=== PATIENT | female | born 1955 | race African-American/Black ===

== ENCOUNTER 2017-11-03 10:12 | Emergency (ER) | payer BC, MEDICAID ==
[~2017-11-03] VITALS: Ht 165.1 cm; Wt 85.0 kg
[~2017-11-03 10:12] MED LIST: ACETAMINOPHEN; CHOL50006
[2017-11-03 12:29] LABS: HEMATOCRIT. 40.1 % (36.0-48.0); MEAN CORPUSCULAR HEMOGLOBIN 25.1 pg (28.0-32.0); MEAN CORPUSCULAR VOLUME 77.3 fL (81.0-99.0); MEAN PLATELET VOLUME 7.7 fl (7.4-10.4); PLATELET 291 x1000/uL (130-400); RED BLOOD CELL COUNT 5.19 mill/uL (4.2-5.4); RED CELL DISTRIBUTION WIDTH 15.3 % (11.6-14.6)
[2017-11-03 12:45] LABS: CARBON DIOXIDE 28 mEq/L (21-32); CHLORIDE 109 mEq/L (98-107); TROPONIN I < 0.02 ng/mL (0.00-0.04)
[2017-11-03 12:54] LABS: PLATELET ESTIMATE NORMAL
[2017-11-03 13:22] LABS: CLARITY URINE CLEAR (CLEAR); COLOR URINE YELLOW (YELLOW); KETONES URINE NEGATIVE (NEGATIVE); LEUKOCYTE ESTERASE URINE NEGATIVE (NEGATIVE); NITRITE URINE NEGATIVE (NEGATIVE); OCCULT BLOOD URINE NEGATIVE (NEGATIVE); PH URINE 6.5 (4.5-8.0); PROTEIN URINE NEGATIVE (NEGATIVE); SPECIFIC GRAVITY URINE 1.009 (1.005-1.030); UROBILINOGEN URINE 0.2 E.U./dL (0.2-1.0)
[2017-11-03 14:20] VITALS: BP 130/84
== END 2017-11-03 15:00 | disposition home or self-care (01) ==
LOC: ER 10:22
DX: J20.9 Acute bronchitis, unspecified (principal); R11.0 Nausea; K21.9 Gastro-esophageal reflux disease without esophagitis; Z88.1 Allergy status to other antibiotic agents; Z88.5 Allergy status to narcotic agent; Z86.73 Personal history of transient ischemic attack (TIA), and cerebral infarction without residual deficits; Z85.3 Personal history of malignant neoplasm of breast
CPT/HCPCS: 36415; 71045; 80053; 81003; 83690; 84484; 85025; 87070; 87430; 87804; 93005; 99285; Z7610

== ENCOUNTER 2018-01-04 04:31 | Emergency (ER) | payer BC, MEDICAID ==
[~2018-01-04] VITALS: Ht 170.2 cm; Wt 71.0 kg
[~2018-01-04 04:31] MED LIST changes: +METH4TAB17 PO
[2018-01-04] MEDS ORDERED: SODIUM CHLORIDE 0.9% 1,000 ML IV ONE (06:21)
[2018-01-04 07:07] LABS: BASOPHILS % 0.3 % (0.0-2.0); EOSINOPHILS % 0.1 % (0.0-5.0); HEMATOCRIT. 39.9 % (36.0-48.0); HEMOGLOBIN. 13.2 g/dL (12.0-16.0); MEAN CORPUSCULAR VOLUME 78.3 fL (81.0-99.0); MEAN PLATELET VOLUME 7.7 fl (7.4-10.4); MONOCYTES % 6.3 % (2.0-8.0); NEUTROPHILS % 67.3 % (40.0-76.0); PLATELET 302 x1000/uL (130-400); RED CELL DISTRIBUTION WIDTH 15.7 % (11.6-14.6)
[2018-01-04 07:13] LABS: PROTHROMBIN TIME 10.4 sec (9.4-11.6)
[2018-01-04 07:16] LABS: CHLORIDE 106 mEq/L (98-107)
[2018-01-04 12:00] VITALS: BP 144/72
== END 2018-01-04 12:01 | disposition home or self-care (01) ==
LOC: ER 04:31
DX: J20.9 Acute bronchitis, unspecified (principal); M32.9 Systemic lupus erythematosus, unspecified; Z85.3 Personal history of malignant neoplasm of breast; D72.828 Other elevated white blood cell count; Z88.2 Allergy status to sulfonamides; Z88.5 Allergy status to narcotic agent; Z90.10 Acquired absence of unspecified breast and nipple; Z88.1 Allergy status to other antibiotic agents
CPT/HCPCS: 36415; 71045; 80053; 83880; 84484; 85025; 85610; 93005; 96360; 99285; J7030; Z7610

== ENCOUNTER 2018-02-14 03:03 | Emergency (ER) | payer BC, MEDICAID ==
[~2018-02-14] VITALS: Ht 170.2 cm; Wt 70.0 kg
[2018-02-14] MEDS ORDERED: SODIUM CHLORIDE 0.9% 1000ML BAG (SEPSIS BOLUS) IV ONE ×2 (04:45→08:00)
[2018-02-14] MEDS ORDERED: KETOROLAC 30MG/ML VIAL IV ONE (05:15)
[2018-02-14 05:16] LABS: CLARITY URINE CLOUDY (CLEAR); COLOR URINE YELLOW (YELLOW); KETONES URINE NEGATIVE (NEGATIVE); LEUKOCYTE ESTERASE URINE 2+ (NEGATIVE); NITRITE URINE NEGATIVE (NEGATIVE); OCCULT BLOOD URINE NEGATIVE (NEGATIVE); PROTEIN URINE TRACE (NEGATIVE); SPECIFIC GRAVITY URINE 1.024 (1.005-1.030)
[2018-02-14 05:20] LABS: HEMATOCRIT. 37.9 % (36.0-48.0); HEMOGLOBIN. 12.4 g/dL (12.0-16.0); MEAN CORPUSCULAR VOLUME 79.4 fL (81.0-99.0); MEAN PLATELET VOLUME 7.4 fl (7.4-10.4); PLATELET 287 x1000/uL (130-400); RED BLOOD CELL COUNT 4.77 mill/uL (4.2-5.4); RED CELL DISTRIBUTION WIDTH 15.5 % (11.6-14.6)
[2018-02-14 05:21] LABS: CHLORIDE 106 mEq/L (98-107)
[2018-02-14 05:22] LABS: PROTHROMBIN TIME 10.7 sec (9.4-11.6)
[2018-02-14 06:09] LABS: PLATELET ESTIMATE NORMAL
[2018-02-14] MEDS ORDERED: CEFTRIAXONE SODIUM 1 G/VIAL IM ONE (07:30)
[2018-02-14] MEDS ORDERED: IOHEXOL-300 100 ML BOTTLE ONE (08:44)
[2018-02-14 10:37] VITALS: BP 120/72
== END 2018-02-14 10:39 | disposition home or self-care (01) ==
LOC: ER 03:03
DX: N39.0 Urinary tract infection, site not specified (principal); R19.7 Diarrhea, unspecified; Z85.3 Personal history of malignant neoplasm of breast; Z88.2 Allergy status to sulfonamides; Z88.5 Allergy status to narcotic agent; Z90.12 Acquired absence of left breast and nipple
CPT/HCPCS: 36415; 71045; 74177; 80053; 81003; 83605; 85025; 85610; 87040; 87086; 93005; 96361; 96372; 96374; 99285; J0696; J1885; J7030; Q9967; X7700; Z7610

== ENCOUNTER 2018-05-02 21:48 | Emergency (ER) | payer BC, MEDICAID ==
[~2018-05-02] VITALS: Ht 170.2 cm; Wt 69.0 kg
[2018-05-03] MEDS ORDERED: MORPHINE SULFATE 4 MG/ML CPJ (NOT FOR IM USE) IV STA (00:15)
[2018-05-03] MEDS ORDERED: IPRATROPIUM BROMIDE (0.02%) 0.5MG/2.5ML NEB HHN STA (00:15)
[2018-05-03] MEDS ORDERED: ONDANSETRON HCL 4MG/2ML VIAL IV STA (00:15)
[2018-05-03] MEDS ORDERED: METHYLPREDNISOLONE SOD SUCC 125 MG/2 ML VIAL IV STA (00:15)
[2018-05-03] MEDS ORDERED: SODIUM CHLORIDE 0.9% 1,000 ML IV ONE (00:15)
[2018-05-03] MEDS ORDERED: ALBUTEROL (0.083%) 2.5MG/3ML NEB HHN STA (00:15)
[2018-05-03 00:37] LABS: BASOPHILS % 1.1 % (0.0-2.0); EOSINOPHILS % 0.8 % (0.0-5.0); HEMATOCRIT. 36.3 % (36.0-48.0); HEMOGLOBIN. 11.8 g/dL (12.0-16.0); LYMPHOCYTES % 23.4 % (20.0-50.0); MEAN CORPUSCULAR HEMOGLOBIN 26.3 pg (28.0-32.0); MEAN CORPUSCULAR VOLUME 81.2 fL (81.0-99.0); MEAN PLATELET VOLUME 7.2 fl (7.4-10.4); MONOCYTES % 7.4 % (2.0-8.0); NEUTROPHILS % 67.3 % (40.0-76.0); PLATELET 284 x1000/uL (130-400); RED BLOOD CELL COUNT 4.48 mill/uL (4.2-5.4); RED CELL DISTRIBUTION WIDTH 16.5 % (11.6-14.6)
[2018-05-03 00:43] LABS: CHLORIDE 107 mEq/L (98-107)
[2018-05-03] MEDS ORDERED: KETOROLAC 30MG/ML VIAL IV ONE (01:30)
[2018-05-03 03:52] VITALS: BP 144/78
== END 2018-05-03 03:54 | disposition home or self-care (01) ==
LOC: ER 22:41
DX: R06.02 Shortness of breath (principal); R07.9 Chest pain, unspecified
CPT/HCPCS: 36415; 71045; 80053; 83880; 84484; 85025; 93005; 94640; 96374; 96375; 99285; J2270; J2405; J2930; J7030; J7611; Z7610; A4315

== ENCOUNTER 2022-12-27 16:23 | Emergency (ER) | payer BC, MEDICAID ==
[~2022-12-27] VITALS: Ht 167.6 cm; Wt 64.0 kg
[2022-12-27 17:06] VITALS: BP 137/82
== END 2022-12-27 17:09 | disposition home or self-care (01) ==
LOC: ER 16:23
DX: F41.9 Anxiety disorder, unspecified (principal); I10 Essential (primary) hypertension; E11.9 Type 2 diabetes mellitus without complications; F43.10 Post-traumatic stress disorder, unspecified; F32.9 Major depressive disorder, single episode, unspecified; Z88.2 Allergy status to sulfonamides; Z88.3 Allergy status to other anti-infective agents; Z88.5 Allergy status to narcotic agent; Z85.9 Personal history of malignant neoplasm, unspecified
CPT/HCPCS: 99281

== ENCOUNTER 2024-09-19 12:11 | Emergency (ER) | payer MEDICARE, BC ==
[~2024-09-19] VITALS: Ht 165.1 cm; Wt 60.0 kg
[2024-09-19 12:14] VITALS: O2SAT 99
[2024-09-19 13:04] LABS: CHLORIDE 109 mEq/L (98-107); DIFFERENTIAL COMMENT 1; HEMATOCRIT. 44.6 % (36.0-48.0); HEMOGLOBIN. 13.9 g/dL (12.0-16.0); MEAN CORPUSCULAR HEMOGLOBIN 24.9 pg (28.0-32.0); MEAN CORPUSCULAR HGB CONC 31.2 g/dL (31.0-37.0); MEAN CORPUSCULAR VOLUME 79.9 fL (81.0-99.0); MEAN PLATELET VOLUME 9.5 fl (7.4-10.4); PLATELET 184 x1000/uL (130-400); POTASSIUM 3.7 mEq/L (3.5-5.1); RED BLOOD CELL COUNT 5.59 mill/uL (4.2-5.4); RED CELL DISTRIBUTION WIDTH 18.5 % (11.6-14.6); SODIUM 143 mEq/L (136-145); WHITE BLOOD COUNT 3.3 x1000/uL (4.5-11.0)
[2024-09-19 13:05] LABS: CALCIUM 9.6 mg/dL (8.7-10.4); CARBON DIOXIDE 20 mEq/L (21-32)
[2024-09-19 13:10] LABS: CREATININE 0.9 mg/dL (0.6-1.0); GLUCOSE 99 mg/dL (70-105); UREA NITROGEN BLOOD 18 mg/dL (9-23)
[2024-09-19 13:12] LABS: ACETAMINOPHEN < 2 ug/mL (10-30)
[2024-09-19 13:26] LABS: PLATELET ESTIMATE NORMAL
[2024-09-19 13:27] LABS: ANISOCYTOSIS 2+
[2024-09-19 13:57] LABS: ETHANOL BLOOD < 10 mg/dL (<10)
[2024-09-20 03:46] LABS: CLARITY URINE CLOUDY (CLEAR); COLOR URINE DARK YELLOW (YELLOW); GLUCOSE URINE NEGATIVE (NEGATIVE); KETONES URINE TRACE (NEGATIVE); LEUKOCYTE ESTERASE URINE 1+ (NEGATIVE); NITRITE URINE NEGATIVE (NEGATIVE); OCCULT BLOOD URINE NEGATIVE (NEGATIVE); PH URINE 5.5 (4.5-8.0); PROTEIN URINE 2+ (NEGATIVE); SPECIFIC GRAVITY URINE 1.023 (1.005-1.030)
[2024-09-20 03:54] LABS: *AMPHETAMINES SCREEN URINE NEGATIVE (NEGATIVE)
[2024-09-20 03:55] LABS: *BARBITURATES SCREEN URINE NEGATIVE (NEGATIVE); *BENZODIAZEPINES SCREEN URINE NEGATIVE (NEGATIVE); *COCAINE SCREEN URINE NEGATIVE (NEGATIVE); CANNABINOID URINE SCREEN NEGATIVE (NEGATIVE); ECSTASY MDMA SCREEN URINE NEGATIVE (NEGATIVE); METHADONE URINE SCREEN NEGATIVE (NEGATIVE); OPIATES URINE SCREEN NEGATIVE (NEGATIVE); PHENCYCLIDINE URINE SCREEN NEGATIVE (NEGATIVE)
[2024-09-20 04:14] LABS: SQUAMOUS EPITHELIAL CELL URINE 1+ /lpf (RARE/1+)
[2024-09-20 04:19] LABS: BACTERIA URINE NONE SEEN; RBC URINE 0-2 /hpf (0-2)
[2024-09-20] MEDS: SERTRALINE HCL 50MG TABLET PO SCH (19:00)
[2024-09-22 09:55] VITALS: BP 159/90; PULSE 100; RESP 18; TEMP 36.89184; O2SAT 99
== END 2024-09-22 11:39 | disposition home or self-care (01) ==
LOC: ER 12:11
DX: R45.850 Homicidal ideations (principal); F41.9 Anxiety disorder, unspecified; E11.9 Type 2 diabetes mellitus without complications; F32.9 Major depressive disorder, single episode, unspecified; I10 Essential (primary) hypertension; Z79.899 Other long term (current) drug therapy; Z88.1 Allergy status to other antibiotic agents; Z88.2 Allergy status to sulfonamides; Z88.5 Allergy status to narcotic agent; Z79.52 Long term (current) use of systemic steroids
CPT/HCPCS: 36415; 80048; 80307; 80320; 80329; 85025; 99285; G0480